=== PATIENT | male | born 1965 | race Caucasian/White ===

== ENCOUNTER 2024-01-23 10:13 | Emergency (ER) | payer OTHER, SELFPAY ==
[2024-01-23 10:22] VITALS: BP 160/94
[2024-01-23 11:16] VITALS: BMI 27.1
--- NOTE | 2024-01-23 11:58 | ED.GENMED ---
History of Present Illness
General
Chief Complaint: Male Genito-Urinary Symptoms
Source: patient
Exam Limitations: none
Time Seen by Provider: 01/23/24 10:39
Nursing documentation reviewed up to this point in time: agreed with
Travel History
Have you had any contact with someone who has COVID-19?: No
Do you have any symptoms of coronavirus? Fever > 100 degrees, chills, cough, shortness of breath, sore throat, loss of taste or smell, muscle aches, or headache?: No
History of Present Illness
History of Present Illness:
Patient is a 58-year-old male who presents to the emergency department complaining of left testicular pain and swelling that started yesterday and got progressively worse. Patient's had epididymitis in the past. Patient states this might feel
similar. Patient denies any recent illnesses or injuries. Patient denies fever or chills. Patient denies any weight loss. Patient denies any GI symptoms. Patient denies any hematuria, dysuria patient did play golf yesterday.
Past History
Past History
ED Past Medical History: None
ED Past Surgical History: Urological
Social History
Tobacco: Non-smoker
Alcohol: Occasional
Drug: None
Personal:
Living: with family
Employment: Employed
Family History
Family History: Negative Sudden
Review of Systems
Review of Systems
All Other Systems: Not applicable
Phy Exam
Physical Exam
Physical Exam:
Physical Exam
General: No apparent distress, alert and appropriate, well nourished, well hydrated
HENT: Normocephalic, supple
Abdomen: Soft, nontender. Patient is uncircumcised penis with tenderness and swelling along the left testicle and scrotum. No inguinal adenopathy.
Neuro: Alert and oriented x 3, CN II - XII intact, no motor focality, no cerebellar dysfunction
Skin: no rash
Psychiatric: well kept. interactive and cooperative
Extremities: No edema, cyanosis, tenderness
Scores
Heart Failure Risk
Heart Failure Risk Score: Not Applicable
Heart Score for Chest Pain Patients
STEMI patient?: Not applicable
Withdrawal Assessment of Alcohol
Withdrawal Assessment Completed?: Not applicable
Course
Orders/Labs/Results
Orders:
Orders
01/23/24 10:24
Scrotum US [US Scrotum] Urgent
Comment:
Reason For Exam: Testicle pain. Evaluate for torsion
01/23/24 11:23
Urinalysis Reflex To Culture Urgent
Date Specimen was Collected: 01/23/24
Time Specimen was Collected: 10:39
Vital Signs
Initial and Last Documented VS:
Initial Vital Signs
Temp Pulse Resp BP Pulse Ox
98.2 F 70 16 160/94 98
01/23/24 10:22 01/23/24 10:22 01/23/24 10:22 01/23/24 10:22 01/23/24 10:22
Last Documented Vital Signs
Temp Pulse Resp BP Pulse Ox
98.2 F 70 16 160/94 98
01/23/24 10:22 01/23/24 10:22 01/23/24 10:22 01/23/24 10:22 01/23/24 10:22
*Radiology
Radiology exam reviewed: radiology read reviewed (Thickening of the scrotum on the left)
*Pulse Oximetry
Patient hypoxic: no
*EKG
Interpreted by ED Provider?: NA
*Internal Audit Director Interpretation
Rate: Internal Audit Director- N/A
*Critical Care Note
Total Time (30-74mins, 75-104mins- exclusive of procedures): Not Applicable
Update Note
Update Note:
Seems to be more inflammation of the scrotum but clinically is epididymitis. No signs of Nilson's
ED Attending Note
-
Portions of this chart may have been created with voice recognition software.� Occasional wrong word or��sound alike� substitutions may have occurred due to the inherent limitations of voice recognition software.
Discharge Plan
Departure
Patient Disposition: Home (Routine Discharge)
Date of Disposition: 01/23/24
Time of Disposition: 12:01
Patient with high blood pressure during this ER visit?: Yes
Condition: Good
Covid-19: Not Applicable
Discharge Problem:
Acute epididymitis
Instructions: Epididymitis (DC), BLOOD PRESSURE
Prescriptions:
New
ketorolac 10 mg tablet
10 mg PO QID PRN (Reason: pain) Qty: 20 0RF
doxycycline monohydrate 100 mg capsule
100 mg PO BID Qty: 14 0RF
No Action
multivitamin [Multi-Day] 1 EACH tablet
1 ea PO DAILY
rabies vacc,human diploid (PF) [Imovax Rabies Vaccine (PF)] 1 ML recon soln
1 ml IM . DIRECTED Qty: 3 0RF
Rx Instructions:
See Rabies Vaccine Post Exposure Prophylaxis Instruction Sheet for Dosing Instructions
Referrals:
Gal Bishop MD [Family Provider] - Follow up in 5-7 days
Activity Restrictions/Additional Instructions:
Use athletic supporter to help support the testicle and decrease the discomfort from gravity. Any increasing pain, swelling or fever please return.
Interventions
Interventions:
*Risk Screen - Suicide Last Done: 01/23/24 10:22
*General Assessment Last Done: 01/23/24 10:22
*Neglect/Abuse Screening Last Done: 01/23/24 10:22
ED- Fall Risk Assessment Last Done: 01/23/24 11:16
*ED COVID-19 Vaccine History Last Done: 01/23/24 11:16
ED-Male Genitourinary Assessment Last Done: 01/23/24 11:16
Discharge Date and Time
Print Language: YI
[2024-01-23] MEDS: VIBRAMYCIN 100 MG PO (12:09)
[2024-01-23] MEDS: TORADOL 10 MG PO (12:09)
[2024-01-23 12:11] VITALS: BP 160/90
[2024-01-23 13:39] LABS: Urine Albumin Negative (Neg - Trace); Urine Bilirubin Negative (Negative); Urine Character Clear (Clear); Urine Color Yellow; Urine Glucose Negative (Negative); Urine Ketone Negative (Negative); Urine Leukocyte Negative (Negative); Urine Nitrite Negative (Negative); Urine Occult Blood Negative (Negative); Urine Urobilinogen Negative (Neg - 1+); Urine pH 6.5 (5.0-9.0)
== END 2024-01-23 12:13 | disposition home or self-care (01) ==
LOC: EMR 10:13
PROVIDERS: Emergency Medicine; EMERGENCY PHYSICIAN Emergency Medicine; FAMILY PHYSICIAN Family Medicine
DX: N45.1 Epididymitis (principal); R03.0 Elevated blood-pressure reading, without diagnosis of hypertension
CPT/HCPCS: 99284; 76870; 81003; 93976

== ENCOUNTER → 2024-03-07 06:31 | Day surgery (SDC) | payer OTHER, SELFPAY | LOC: GI 06:31 | PROVIDERS: ATTENDING PHYSICIAN Internal Medicine Gastroenterology; FAMILY PHYSICIAN Family Medicine | DX: Z12.11 Encounter for screening for malignant neoplasm of colon (principal); D12.3 Benign neoplasm of transverse colon; K63.5 Polyp of colon; K57.30 Diverticulosis of large intestine without perforation or abscess without bleeding; K64.0 First degree hemorrhoids; Z86.010 Personal history of colon polyps; Z83.710 Family history of adenomatous and serrated polyps | CPT/HCPCS: 45385; 45380; 88305 ==

== ENCOUNTER 2025-10-18 13:12 | Emergency (ER) | payer BC, SELFPAY ==
[2025-10-18 13:16] VITALS: BP 131/84
[2025-10-18 15:16] VITALS: BMI 27.3
[2025-10-18 15:18] VITALS: BP 129/88
[2025-10-18] MEDS: DELTASONE 40 MG PO (16:32)
[2025-10-18] MEDS: DECADRON 10 MG PO (16:33)
[2025-10-18] MEDS: TORADOL 60 MG IM (17:37)
--- NOTE | 2025-10-18 18:25 | ED.ATTNOTE ---
ED Attending Note
ED Attending Note
Patient seen and examined by attending physician: Yes
I performed the substantive portion of visit, reviewed & personally made and approve the management plan that is documented in note by myself or MARCOS.: Yes
ED Attending Note:
Patient has strong pulses and sensation of right upper extremity. He has soft compartments of right upper extremity. Patient does have mild soft tissue swelling and tenderness of right proximal forearm, in an area in which he had prior surgery.
However, there is no sign of warmth, erythema cellulitis or deep space infection. Patient encouraged to follow-up with Dr. Mp Guy who had done his right upper extremity surgery in the past.
-
Portions of this chart may have been created with voice recognition software.� Occasional wrong word or��sound alike� substitutions may have occurred due to the inherent limitations of voice recognition software.
--- NOTE | 2025-10-18 18:42 | ED.MUSCINJ ---
HPI-Injury
General
Chief Complaint: Musculo-Skeletal Complaint
Source: patient
Exam Limitations: none
Time Seen by Provider: 10/18/25 15:40
Nursing documentation reviewed up to this point in time: agreed with
History of Present Illness-Injury
Is this injury a work related problem?: No
Is pt an associate of [facility]/[place]?: No
Initial Injury comments:
Patient to the emergency department for evaluation of neck pain. Patient states he lifted a golf bag over his right shoulder and developed the onset of right posterior neck pain. This occurred on Thursday. He notes radiation from the right side of
his neck down his right arm to his fingers. He was seen by his primary care provider on Thursday. He was given a prescription for oxycodone for pain control. He was also instructed to continue NSAIDs which he reports he has been doing. He did not
notice any improvement. He was then seen at urgent care on Thursday he was given a prescription for Flexeril as needed. States he has been taking the Flexeril which has helped with spasms in his neck but overall the pain to his neck with radiation
to his right upper extremity continues. He denies any fever/chills, recent illness. He denies any skin rash. He denies any headache blurred vision or dizziness. Brought to the emergency department by spouse for evaluation.
Past History
Past History
ED Past Medical History: None
ED Past Surgical History: Urological
Social History
Tobacco: Non-smoker
Alcohol: Occasional
Drug: None
Personal:
Living: with family
Employment: Employed
Family History
Family History: Negative Sudden
Review of Systems
Review of Systems
Allergies reviewed?: Yes
All Other Systems: ROS reviewed and negative except as documented in HPI and ROS
Constitutional: Reports no symptoms
EENT: Reports no symptoms
Respiratory: Reports no symptoms
Cardiac: Reports no symptoms
ABD/GI: Reports no symptoms
: Reports no symptoms
Musculoskeletal: Reports neck pain
Skin: Reports no symptoms
Neurological: Reports other (Right neck pain with radiation to right upper extremity.)
Psychiatric: Reports no symptoms
Musculoskeletal Injury Exam
Musculoskeletal Injury Exam
Neck:
Pain with Movement?: Moderate
Tender to palpation?: Moderate
Soft tissue swelling?: None
External deformity and angulation?: None
Joint effusion?: None
Contusion?: None
Hematoma-local bleeding into tissue?: None
Strain- Sprain- Tear (Connective tissue injury)?: Moderate
Crepitus with movement?: No
Joint instability?: No
Malalignment/deformity?: No
Range of motion: Limited
Distal skin color and temperature: normal-warm & good color
Capillary Refill: normal
Normal distal neurovascular exam?: Yes
Peripheral Pulses: radial (left): 3+
Phy Exam
General Physical Exam
General Presentation: well appearing and mild distress
General age: appears stated age
General Skin: warm and dry
General Habitus: normal
General Mental: alert
Neurological Exam
Neurological Exam: alert, oriented x3, CN II-XII intact, no motor deficits, no sensory deficits and speech normal
Musculoskeletal Exam
Musculoskeletal Exam: full ROM, neuro vasc intact and other (Pain to posterior and right lateral neck. Radiation of pain to right upper extremity. He has full range of motion to head/neck. Pain is worse with movement.)
Skin Exam
Skin Exam: normal color, warm/dry and no rash
Psychiatric Exam
Psychiatric Exam: normal mood/affect
Injury Course
Orders/Labs/Results
Orders:
Orders
10/18/25 16:11
Dexamethasone Pf [Decadron] 10 mg PO NOW STA
Prednisone [Deltasone] 40 mg PO NOW STA
10/18/25 16:35
Cervical Spine wo Contrast CT [CT Cervical Spine W/o Iv Contr] Urgent
Comment:
Reason For Exam: pain, hx C7 compression
10/18/25 17:29
Ketorolac [Toradol] 60 mg IM NOW STA
*Radiology
Radiology exam reviewed: radiology read reviewed
*Pulse Oximetry
SaO2: 95
Oxygen Mode of Delivery: Room air
Patient hypoxic: no
*Critical Care Note
Total Time (30-74mins, 75-104mins- exclusive of procedures): Not Applicable
Update Note
Update Note:
Patient to the emergency department for evaluation of neck pain that radiates to his right upper extremity. Pain started after he lifted a golf bag over his right shoulder. He has full range of motion to his head and neck but range of motion
increases his pain. Pain radiates to his right upper extremity. He has got equal strength bilaterally right upper extremity is neurovascularly intact. He was sent for CT of the cervical spine. DDD noted. No prevertebral swelling moderate
narrowing at C6/7 moderate osseous foraminal narrowing at C5-6. Discussed findings with him. Plan is to treat with prednisone taper. He will continue NSAIDs and narcotic pain medication as needed. He will be discharged home tonight and will
follow-up with his primary care provider. Recommend nonurgent outpatient MRI for further evaluation of his symptoms. Return to the emergency department for any changes in/worsening of his symptoms.
ED Attending Note
-
Portions of this chart may have been created with voice recognition software.� Occasional wrong word or��sound alike� substitutions may have occurred due to the inherent limitations of voice recognition software.
Discharge Plan
Departure
Patient Disposition: Home (Routine Discharge)
Date of Disposition: 10/18/25
Time of Disposition: 18:39
Patient with high blood pressure during this ER visit?: No
Condition: Good
Covid-19: Not Applicable
Discharge Problem:
Cervical radiculopathy
Instructions: Ibuprofen, Using Cold for Pain, Radiculopathy of the neck and back (including sciatica) (DC)
Prescriptions:
New
prednisone 10 mg Tablet
See Rx Instructions .ROUTE .COMPLEX Qty: 30 0RF
Rx Instructions:
Take By Mouth:
40 mg daily x3 days, 30 mg daily x3 days,
20 mg daily x3 days, 10 mg daily x3 days.
No Action
multivitamin [Multi-Day] 1 EACH tablet
1 ea PO DAILY
rabies vacc,human diploid (PF) [Imovax Rabies Vaccine (PF)] 1 ML recon soln
1 ml IM . DIRECTED Qty: 3 0RF
Rx Instructions:
See Rabies Vaccine Post Exposure Prophylaxis Instruction Sheet for Dosing Instructions
ketorolac 10 mg tablet
10 mg PO QID PRN (Reason: pain) Qty: 20 0RF
doxycycline monohydrate 100 mg capsule
100 mg PO BID Qty: 14 0RF
Referrals:
Gal Bishop MD [Family Provider, Family Practice] - Next open appointment
Activity Restrictions/Additional Instructions:
Continue the muscle relaxant and narcotic pain medication as needed. Follow-up with your family doctor. As we discussed, nonemergent MRI of your neck is recommended. Return to the emergency department for any changes in/worsening of your symptoms.
Interventions
Interventions:
*General Assessment Last Done: 10/18/25 15:17
*Neglect/Abuse Screening Last Done: 10/18/25 13:16
*ED COVID-19 Vaccine History Last Done: 10/18/25 15:17
*ED Influenza Vaccine History Last Done: 10/18/25 15:17
[facility] Risk Assessment Tool Last Done: 10/18/25 15:16
*Risk Screen - Suicide (C-SSRS) Last Done: 10/18/25 13:16
ED-Musculoskeletal Assessment Last Done: 10/18/25 15:20
Discharge Date and Time
Print Language: AMHARIC
== END 2025-10-18 18:49 | disposition home or self-care (01) ==
LOC: EMR 13:12
PROVIDERS: EMERGENCY PHYSICIAN Emergency Medicine; FAMILY PHYSICIAN Family Medicine
DX: M47.22 Other spondylosis with radiculopathy, cervical region (principal)
CPT/HCPCS: 99284; 72125